=== PATIENT | male | born 1975 | race Two or more races ===

== ENCOUNTER 2017-02-21 05:14 | Emergency (ER) | payer OTHER ==
[~2017-02-21] VITALS: Ht 170.2 cm; Wt 59.0 kg
--- NOTE | 2017-02-21 06:00 | NUR ---
To bed 6 a 42 yo male patient biblapd c/o right lower arm pain on the surgical site "repair of fractured bone" last jan 24, 2017, distal cms intact. presence of su on the surgical site noted. vss. nad noted. comfort measures rendered. awaiting for er md delgado.
--- NOTE | 2017-02-21 06:13 | NUR ---
Dr Huston at bedside to evaluate patient.
--- NOTE | 2017-02-21 06:36 | NUR ---
Pt screaming after one staple removed, no active bleeding noted, refusing the rest of the su to be removed, wants pain medication.
--- NOTE | 2017-02-21 06:38 | NUR ---
Pt medically cleared & ok to book by Dr. Huston. Patient discharged to [employer] custody in stable condition. Written and verbal after care instructions given. Patient verbalizes understanding of instruction.
--- NOTE | 2017-02-21 06:38 | NUR ---
Patient discharged to police custody in stable condition. Written and verbal after care instructions given. Patient verbalizes understanding of instruction. Patient is ambulatory with steady gait, no further complaints.
[2017-02-21 06:39] VITALS: BP 132/83
== END 2017-02-21 06:40 ==
LOC: ER 05:23
DX: Z48.02 Encounter for removal of sutures (principal); F10.10 Alcohol abuse, uncomplicated
CPT/HCPCS: 99283; A6402; A4606; Z7610